=== PATIENT | female | born 1965 | race Caucasian/White ===

== ENCOUNTER 2019-02-27 15:23 | Emergency (ER) | payer OTHER ==
[2019-02-27 15:29] VITALS: RESP 18; TEMP 98.6
--- NOTE | 2019-02-27 17:37 | ED ---
General Adult HPI - General Source: patient Mode of arrival: ambulatory Limitations: no limitations <Kamran Dumas - Last Filed: 02/27/19 17:26> <Carmelo Walker - Last Filed: 02/27/19 19:53> - General Chief complaint: Extremity Injury, Lower Stated complaint: [facility] - Back injury Time Seen by Provider: 02/27/19 15:34 - History of Present Illness Initial comments: Patient is a 53-year-old female presents to emergency department with left knee pain. Patient states the pain started yesterday has not gone away. The pain originates on the posterior aspect of proximal talofibular joint and radiates to the middle calf. Patient reports difficulty walking. Patient reports the pain is exacerbated with pivoting maneuvers and is alleviated with rest. Patient also reports pain with plantar flexion. Patient reports taking ibuprofen for pain with minimal improvement. Patient reports her knee is "buckling" especia lly when attempting to sit down. Patient denies any tingling or numbness. Patient denies any recent travels or appears in activity.. Patient denies any use of estrogens. Patient states her job requires constant movement for prolonged periods of time. Patient denies any hemoptysis or chemotherapy treatment in the last 6 months. (Kamran Dumas) - Related Data Previous Rx's Medication Instructions Recorded Ibuprofen [Motrin] 600 mg PO Q8HR PRN #30 tab 02/27/19 Allergies Allergy/AdvReac Type Severity Reaction Status Date / Time No Known Allergies Allergy Verified 02/27/19 15:29 Review of Systems ROS Other: All systems not noted in ROS Statement are negative. <Kamran Dumas - Last Filed: 02/27/19 17:26> ROS Other: All systems not noted in ROS Statement are negative. <Carmelo Walker - Last Filed: 02/27/19 19:53> ROS Statement: Those systems with pertinent positive or pertinent negative responses have been documented in the HPI. Past Medical History Past Medical History: Osteoarthritis (OA) History of Any Multi-Drug Resistant Organisms: None Reported Additional Past Surgical History / Comment(s): bone spur surgery on right foot Past Psychological History: No Psychological Hx Reported Smoking Status: Current every day smoker Past Alcohol Use History: Occasional Past Drug Use History: None Reported <Kamran Dumas - Last Filed: 02/27/19 17:26> General Exam Limitations: no limitations General appearance: alert, in no apparent distress Head exam: Present: atraumatic, normocephalic, normal inspection Eye exam: Present: normal appearance, PERRL, EOMI ENT exam: Present: normal exam Neck exam: Present: normal inspection Respiratory exam: Present: normal lung sounds bilaterally. Absent: respiratory distress, wheezes, rales, rhonchi, stridor Cardiovascular Exam: Present: regular rate, normal rhythm, normal heart sounds Left Hip exam: Present: normal inspection, full ROM. Absent: tenderness Upper Leg exam: Present: normal inspection, full ROM. Absent: tenderness Knee exam: Present: full ROM, tenderness (Posterior aspect Proximal talofibular joint), pain w/ pronation/supination, full knee extension (Limited). Absent: swelling, abrasion, laceration, ecchymosis, crepitus, erythema Lower Leg exam: Present: tenderness (Positive Kaya test and internal rotation.), Homans' sign. Absent: swelling, ecchymosis Foot/Toe exam: Present: normal inspection, full ROM <Kamran Dumas - Last Filed: 02/27/19 17:26> Course Vital Signs 02/27/19 02/27/19 15:26 18:46 Temperature 98.6 F Pulse Rate 91 72 Respiratory 18 18 Rate Blood Pressure 148/87 139/83 O2 Sat by Pulse 97 97 Oximetry Medical Decision Making <Kamran Dumas - Last Filed: 02/27/19 17:26> - Radiology Data Radiology results: report reviewed (Ultrasound negative for DVT), image reviewed (X-ray of left knee and left tib-fib reveal no acute process.) <Carmelo Walker - Last Filed: 02/27/19 19:53> - Medical Decision Making Patient is a 53-year-old female presents to emergency department with left knee pain. X-ray of the left knee, tibia-fibula were obtained. X-ray was unremarkable. Ultrasound of the left calf Was ordered to rule out DVT. Patient advised to take ibuprofen for pain. Patient is to follow with orthopedics. Patient advised to return to the emergency department is symptoms worsen. Case transferred to Dr. Walker at 1800 (Kamran Dumas) Disposition Is patient prescribed a controlled substance at d/c from ED?: No <Kamran Dumas - Last Filed: 02/27/19 17:26> Time of Disposition: 19:53 <Carmelo Walker - Last Filed: 02/27/19 19:53> Clinical Impression: Knee sprain Disposition: HOME SELF-CARE Condition: Stable Instructions (If sedation given, give patient instructions): Knee Sprain (ED) Additional Instructions: Please take medication as prescribed. Please follow up with orthopedics. Return to emergency department if symptoms worsen. Prescriptions: Ibuprofen [Motrin] 600 mg PO Q8HR PRN #30 tab PRN Reason: Pain Referrals: Lalo Salazar DO [Primary Care Provider] - 1-2 days Flavio Pelayo MD [STAFF PHYSICIAN] - 1-2 days
--- NOTE | 2019-02-27 18:15 | XR ---
PROCEDURE: XR tibia fibula LT - 2V DATE AND TIME: 02/27/2019 5:51 PM CLINICAL INDICATION: PHH; Pain TECHNIQUE: Department protocol COMPARISON: None FINDINGS: There is no fracture or malalignment. Indistinctness is seen within the medial soft tissues of the knee, consistent with mild soft tissue s welling. The soft tissues are otherwise unremarkable. IMPRESSION: Negative for fracture or malalignment.
--- NOTE | 2019-02-27 18:16 | XR ---
PROCEDURE: XR knee complete LT - 3V DATE AND TIME: 02/27/2019 5:51 PM CLINICAL INDICATION: PHH; Pain TECHNIQUE: Department protocol COMPARISON: None FINDINGS: There is no fracture or malalignment. Mild soft tissue swelling noted medially, soft tissues are otherwise unremarkable. IMPRESSION: NO ACUTE PROCESS.
[2019-02-27 19:05] VITALS: BP 139/83; PULSE 72
--- NOTE | 2019-02-27 19:49 | US ---
EXAMINATION TYPE: US venous doppler duplex LE LT DATE OF EXAM: 02/27/2019 7:05 PM COMPARISON: NONE CLINICAL HISTORY: Pain. Pain SIDE PERFORMED: Left TECHNIQUE: The lower extremity deep venous system is examined utilizing real time linear array sonog karen with graded compression, doppler sonography and color-flow sonography. VESSELS IMAGED: External Iliac Vein (EIV) Common Femoral Vein Deep Femoral Vein Greater Saphenous Vein * Femoral Vein Popliteal Vein Small Saphenous Vein * Proximal Calf Veins (* superficial vessels) FINDINGS: Grayscale, color doppler, spectral doppler imaging performed of the deep veins of the lower extremities. There is normal flow, compressibility, vascular waveforms. IMPRESSION: NEGATIVE FOR DVT, LEFT LOWER EXTREMITY.
== END 2019-02-27 19:54 | disposition home or self-care (01) ==
LOC: EC 15:23
DX: S83.92XA Sprain of unspecified site of left knee, initial encounter (principal); F17.200 Nicotine dependence, unspecified, uncomplicated; X50.9XXA Other and unspecified overexertion or strenuous movements or postures, initial encounter; Y92.69 Other specified industrial and construction area as the place of occurrence of the external cause; Y99.0 Civilian activity done for income or pay
CPT/HCPCS: 99284

== ENCOUNTER → 2020-01-07 | Outpatient (CLI) | payer BC ==
--- NOTE | 2020-01-07 10:50 | MM ---
Reason for exam: clinical finding. History: Family history of breast cancer in sister at age 53. Retro-pectoral saline implants in both breasts, 2000. Physical Findings: Nurse Summary: 1cm nodule in the left breast at 11 o'clock (nurse kelly). MG Diag Mamm Implants AUGUSTINE w CAD Bilateral CC, MLO, and ID view(s) were taken. The breast tissue is heterogeneously dense. This may lower the sensitivity of mammography. There is no dominant lesion. Bilateral subpectoral implants. These results were verbally communicated with the patient and result sheet given to the patient on 01/07/20. ASSESSMENT: Incomplete: need additional imaging evaluation, BI-RAD 0 RECOMMENDATION: Ultrasound of the right breast. (palpable)
--- NOTE | 2020-01-07 10:53 | USB ---
Reason for exam: clinical finding. History: Family history of breast cancer in sister at age 53. Retro-pectoral saline implants in both breasts, 2000. US Breast RT Right complete breast ultrasound includes all four quadrants, the retroareolar region and axilla. Finding demonstrates a 0.8 x 0.7 x 0.5cm oval, solid, hypoechoic lesion at 11 o'clock. These results were verbally communicated with the patient and result sheet given to the patient on 01/07/20. ASSESSMENT: Probably benign, BI-RAD 3 RECOMMENDATION: Ultrasound of the right breast in 6 months. (suspect lipoma or hemangioma) Manage on a clinical basis. If enlarges would advise repeat ultrasound earlier than 6 months.
== END | disposition home or self-care (01) ==
LOC: RADMAMWWP 07:43
PROVIDERS: ATTEND Family Medicine
DX: N64.4 Mastodynia (principal); N63.22 Unspecified lump in the left breast, upper inner quadrant; R92.8 Other abnormal and inconclusive findings on diagnostic imaging of breast; Z98.82 Breast implant status
CPT/HCPCS: 77066

== ENCOUNTER 2021-05-04 13:11 | Day surgery (SDC) | payer BC, OTHER ==
[2021-04-29 16:19] VITALS: BMI 27.4
[2021-05-04 13:32] VITALS: RESP 18; TEMP 97.6
[2021-05-04] MEDS ORDERED: LACTATED RINGERS 1,000 ML IV ONE (13:35)
[2021-05-04] MEDS ORDERED: PROPOFOL 10 MG/ML 20 ML VIAL IV ONE (14:12)
--- NOTE | 2021-05-04 14:50 | P.PCN ---
Date of Procedure: 05/04/21 Preoperative Diagnosis: Rectal bleeding Postoperative Diagnosis: Internal hemorrhoids Procedure(s) Performed: Colonoscopy Anesthesia: MAC Surgeon: Arin Garvin Pathology: none sent Condition: stable Disposition: same day Indications for Procedure: 55-year-old female presents today for colonoscopy. She's never had a colonoscopy previously. She states that she has noticed bright red blood in her stool recently. Denies any family history of colon cancer. Risks, benefits and alternatives were provided to the patient. Further recommendations to be made after the procedure. Operative Findings: Overall, normal colon Internal hemorrhoids Description of Procedure: The patient was brought to the endoscopy suite and placed in left lateral decubitus position and adequate sedation was achieved using conscious sedation. A digital rectal exam was performed and mild internal hemorrhoids palpated. An endoscope was then placed in the rectum and advanced to the cecum as identified by landmarks including the appendiceal orifice and the ileocecal valve. The prep was good. The colon scope was then slowly withdrawn, examining for any mucosal or maladies. The cecum, ascending, transverse, descending and sigmoid colon were visualized adequately. There were no large neoplastic lesions noted throughout the colon. There were no obvious polyps noted throughout the colon. There is no evidence of diverticulosis. Retroflexion was performed in the rectum and internal hemorrhoids were visible. Excess air was removed, the colonoscope withdrawn and the procedure terminated. The patient was then transferred to the recovery unit in stable condition. Repeat colonoscopy should be performed in 7 years.
[2021-05-04 14:58] VITALS: BP 142/91; PULSE 81
== END 2021-05-04 15:05 | disposition home or self-care (01) ==
LOC: ORWHC2ENDO 13:11
PROVIDERS: ATTEND Surgery
DX: K64.8 Other hemorrhoids (principal); I10 Essential (primary) hypertension; F17.200 Nicotine dependence, unspecified, uncomplicated
CPT/HCPCS: 45378; J2704